=== PATIENT | female | born 1990 | race African-American/Black ===

== ENCOUNTER 2023-02-09 11:36 | Emergency (ER) | payer MEDICAID ==
[~2023-02-09] VITALS: Ht 167.6 cm; Wt 81.0 kg
[2023-02-09 11:52] VITALS: TEMP 98.6; O2SAT 99
[2023-02-09 14:00] VITALS: BP 111/71; PULSE 95; RESP 19
[2023-02-09] MEDS ORDERED: NAPR500T7 MT (14:00)
[2023-02-09] MEDS ORDERED: KETOROLAC 30MG/ML VIAL IM ONE (14:00)
== END 2023-02-09 16:43 | disposition home or self-care (01) ==
LOC: ER 11:36
DX: M25.532 Pain in left wrist (principal); W18.39XA Other fall on same level, initial encounter; Y93.89 Activity, other specified; Y92.89 Other specified places as the place of occurrence of the external cause; Y99.8 Other external cause status
CPT/HCPCS: 99284; 73110; 73130; 96372; J1885